=== PATIENT | female | born 1965 | race Native Hawaiian/Other Pacific Islander ===

== ENCOUNTER 2018-05-01 10:53 | Day surgery (SDC) | payer BC ==
[~2018-05-01] VITALS: Ht 165.1 cm; Wt 105.7 kg
[~2018-05-01 10:53] MED LIST: ASPI-586 PO; ATOR20TA66 PO; ERGO50006 PO; FLUT9.9S NS; LISI-552 PO; MELO7.5T46 PO; METF10002 PO; SAXA2.5T PO; TRAM50TA2 PO
[2018-05-01] MEDS ORDERED: NS IV 500 ML 500 ML IV PRN (11:01)
[2018-05-01] MEDS ORDERED: NS IV 500 ML 500 ML ONE (11:01)
[2018-05-01 11:10] VITALS: BP 112/50
[2018-05-01] MEDS ORDERED: MIDAZOLAM 2 MG/2 ML (VERSED) VIAL ONE ×4 (11:14→11:15)
[2018-05-01] MEDS ORDERED: LIDOCAINE JELLY 2% (XYLOCAINE) 5 ML TUBE ONE (11:15)
[2018-05-01] MEDS ORDERED: fentaNYL INJECTION 100 MCG/2 ML AMP ONE ×2 (11:15→11:48)
[2018-05-01] MEDS: MIDAZOLAM 2 MG/2 ML (VERSED) VIAL IVP PRN ×4 (11:25→11:55)
--- NOTE | 2018-05-01 11:26 | Conscious Sedation/ASA ---
Conscious Sedation Pre-Proced Time Reviewed: 11:00 ASA Class: 2 Airway Mallampati Classification: ([place] appropriate class) I. II. III, IV Lungs Heart ASA score ASA 1: a normal healthy patient ASA 2: a patient with a mild systemic disease (mid diabetes, controlled hypertension, obesity ASA 3: a patient with a severe systemic disease that limits activity (angina , COPD, prior Myocardial infarction) ASA 4: a patient with an incapacitating disease that is a constant threat to life (CHF, renal failure) ASA 5: a moribund patient not expected to survive 24 hrs. (ruptured aneurysm) ASA 6: a declared brain patient whose organs are being harvested. For emergent operations, add the letter E after the classification Grade 2 Sedation Plan: Analgesia, Amnesia, Plan communicated to team members, Discussed options with patient/fam, Discussed risks with patient/fam Note The patient is an appropriate candidate to undergo the planned procedure, sedation, and anesthesia. The patient immediately re-assessed prior to indication. LUCERO DODGE MD May 01, 2018 11:26 am
[2018-05-01] MEDS: fentaNYL INJECTION 100 MCG/2 ML AMP IVP PRN ×4 (11:27→12:00)
--- NOTE | 2018-05-01 11:27 | Progress Note-Pre Operative ---
Pre-Operative Progress Note H&P Reviewed The H&P was reviewed, patient examined and no changes noted. Date Seen by Provider: May 01, 2018 Time Seen by Provider: 11:00 Date H&P Reviewed: May 01, 2018 Time H&P Reviewed: 11:00 Pre-Operative Diagnosis: family hx colon cancer LUCERO DODGE MD May 01, 2018 11:27 am
[2018-05-01] MEDS ORDERED: ONDANSETRON 4 MG/2 ML (SDV) Z0FRAN IV PRN (11:30)
[2018-05-01] MEDS ORDERED: morphine INJ 10 MG/ML 1ML (SYR OR VIAL) IV PRN (11:30)
[2018-05-01] MEDS ORDERED: HYDROcodone/APAP 5 MG/325 MG (LORTAB) TAB PO PRN (11:30)
[2018-05-01] MEDS ORDERED: ACETAMINOPHEN 325 MG TABLET PO PRN (11:30)
--- NOTE | 2018-05-01 12:03 | Progress Note-Post Operative ---
Post-Operative Progess Note Surgeon (s)/Hemodialysis Technician (s) Surgeon LUCERO DODGE MD Hemodialysis Technician: none Pre-Operative Diagnosis family hx colon cancer Post-Operative Diagnosis mild sigmoid diverticulosis. Procedure & Operative Findings Date of Procedure 05/01/18 Procedure Performed/Findings Colonoscopy. Anesthesia Type CS Estimated Blood Loss Estimated blood loss (mL): minimal Specimens/Packing Specimens Removed none LUCERO DODGE MD May 01, 2018 12:03 pm
--- NOTE | 2018-05-01 12:05 | Discharge Inst-Surgical ---
D/C Lap Instructions-DAR New, Converted, or Re-Newed RX: RX on Chart Follow Up 5 years Activity as tolerated High Fiber Diet 25g or more per day Avoid Alcohol, Caffeine, Spicy [place] and Acid foods. Drink 64 fluid oz or more of fluids per day. Symptoms to Report: Fever over 101 degree F, Nausea/Vomiting If any problems/questions: Contact your physician or go to Emergency Room LUCERO DODGE MD May 01, 2018 12:05 pm
[2018-05-01 12:10] VITALS: BP 82/52
[2018-05-01 12:45] VITALS: BP 93/66
[2018-05-01] MEDS ORDERED: LIDOCAINE JELLY 2% (XYLOCAINE) 5 ML TUBE TOP ONE (12:45)
[2018-05-01 13:05] VITALS: BP 93/66
--- NOTE | 2018-05-01 19:01 | OPERATIVE REPORT ---
DATE OF SERVICE: 05/01/2018 ATTENDING PRIMARY CARE PHYSICIANS: 1. Summer saucedo, LAX[facility]. 2. Dr. Royal Martinez. PREOPERATIVE DIAGNOSIS: Family history of colon cancer. POSTOPERATIVE DIAGNOSIS: Mild sigmoid diverticulosis. PROCEDURE: Colonoscopy. SURGEON: Lucero Vidal MD ANESTHESIA: Conscious sedation. ESTIMATED BLOOD LOSS: Minimal. FINDINGS: No significant hemorrhoids identified. There was mild sigmoid diverticulosis. Remainder of the colon was normal. There were no polyps or any neoplasms identified. DISPOSITION: The patient tolerated the procedure well. INDICATIONS: The patient is a 52-year-old female in need of a screening followup colonoscopy. Her last colonoscopy was in 2003 and she believes that to be normal. She states that she is doing well for the most part and does not report any major issues with diarrhea nor constipation and does not report any red blood per rectum nor any dark tarry stools. She does have a first-degree family history of colon cancer with her mother being diagnosed with the disease at around age 60. DESCRIPTION OF PROCEDURE: The patient was brought to the endoscopy suite, laid in the left lateral decubitus position. After adequate pain and sedating medications and conscious sedation anesthesia, a digital rectal examination was performed. No significant hemorrhoids identified. Normal sphincter tone was felt and there were no palpable masses. The endoscope was then intubated to the anus, rectum and gently insufflated. The endoscope was then advanced through the valves of [place] of the rectum with no polyps or any neoplasms identified. We then proceeded through the sigmoid colon where mild sigmoid diverticulosis was identified. There were no mucosal inflammatory changes to indicate any active diverticulitis. The endoscope was then advanced to the remainder of the descending, transverse and ascending colon to the cecum. These segments were normal. There were no polyps or any neoplasms identified throughout the colon or rectum. The endoscope was then slowly withdrawn while taking a second look and suctioning of residual air with no additional findings. The patient tolerated the procedure well. We will recommend continued medical management with a high-fiber diet with at least 25 to 30 grams of fiber per day to promote soft stools on a daily basis. Due to her family history of colon cancer, we will recommend a followup colonoscopy in approximately 5 years. Job ID: [id number] DocumentID: [id number] Dictated Date: 05/01/2018 12:04:12 Filling Machine Set Up Mechanic Date: 05/01/2018 19:00:22 Dictated By: LUCERO VIDAL MD
== END 2018-05-01 12:50 | disposition home or self-care (01) ==
LOC: ENDO 10:53
PROVIDERS: ATTEND Surgery
DX: Z12.11 Encounter for screening for malignant neoplasm of colon (principal); K57.30 Diverticulosis of large intestine without perforation or abscess without bleeding; Z80.0 Family history of malignant neoplasm of digestive organs; I10 Essential (primary) hypertension; E11.9 Type 2 diabetes mellitus without complications; Z79.82 Long term (current) use of aspirin; Z79.84 Long term (current) use of oral hypoglycemic drugs; Z79.899 Other long term (current) drug therapy